=== PATIENT | male | born 1965 | race African-American/Black ===

== ENCOUNTER 2024-07-31 13:22 | Outpatient (CLI) | payer BC | END 2024-07-31 13:23 | disposition home or self-care (01) | LOC: CSHWCC 13:22 | PROVIDERS: ATTEND Nurse Practitioner Family | DX: E11.621 Type 2 diabetes mellitus with foot ulcer (principal); L97.115 Non-pressure chronic ulcer of right thigh with muscle involvement without evidence of necrosis | CPT/HCPCS: 11042; 11045; 99213; G0463 ==

== ENCOUNTER 2024-08-03 09:09 | Outpatient (CLI) | payer BC | END 2024-08-03 09:10 | disposition home or self-care (01) | LOC: CSHWCC 09:09 | PROVIDERS: ATTEND Nurse Practitioner Family | DX: E11.621 Type 2 diabetes mellitus with foot ulcer (principal); L97.115 Non-pressure chronic ulcer of right thigh with muscle involvement without evidence of necrosis | CPT/HCPCS: 29581 ==

== ENCOUNTER 2024-08-07 13:07 | Outpatient (CLI) | payer BC | END 2024-08-07 13:08 | disposition home or self-care (01) | LOC: CSHWCC 13:07 | PROVIDERS: ATTEND Nurse Practitioner Family | DX: E11.621 Type 2 diabetes mellitus with foot ulcer (principal); L97.115 Non-pressure chronic ulcer of right thigh with muscle involvement without evidence of necrosis | CPT/HCPCS: 11042; 11045 ==

== ENCOUNTER 2024-08-09 16:00 | Outpatient (CLI) | payer BC | END 2024-08-09 16:01 | disposition home or self-care (01) | LOC: CSHWCC 16:00 | PROVIDERS: ATTEND Nurse Practitioner Family | DX: E11.621 Type 2 diabetes mellitus with foot ulcer (principal); L97.115 Non-pressure chronic ulcer of right thigh with muscle involvement without evidence of necrosis | CPT/HCPCS: 29581; 99211; G0463 ==

== ENCOUNTER 2024-08-14 13:35 | Outpatient (CLI) | payer BC | END 2024-08-14 13:36 | disposition home or self-care (01) | LOC: CSHWCC 13:35 | PROVIDERS: ATTEND Nurse Practitioner Family | DX: E11.621 Type 2 diabetes mellitus with foot ulcer (principal); L97.115 Non-pressure chronic ulcer of right thigh with muscle involvement without evidence of necrosis | CPT/HCPCS: 11042; 11045 ==

== ENCOUNTER 2024-08-28 16:25 | Outpatient (CLI) | payer BC | END 2024-08-28 16:26 | disposition home or self-care (01) | LOC: CSHWCC 16:25 | PROVIDERS: ATTEND Nurse Practitioner Family | DX: E11.621 Type 2 diabetes mellitus with foot ulcer (principal); L97.115 Non-pressure chronic ulcer of right thigh with muscle involvement without evidence of necrosis | CPT/HCPCS: 11042 ==

== ENCOUNTER 2024-09-04 16:14 | Outpatient (CLI) | payer BC | END 2024-09-04 16:15 | disposition home or self-care (01) | LOC: CSHWCC 16:14 | PROVIDERS: ATTEND Nurse Practitioner Family | DX: E11.621 Type 2 diabetes mellitus with foot ulcer (principal); L97.115 Non-pressure chronic ulcer of right thigh with muscle involvement without evidence of necrosis | CPT/HCPCS: 11042 ==

== ENCOUNTER 2024-09-11 15:35 | Outpatient (CLI) | payer BC | END 2024-09-11 15:36 | disposition home or self-care (01) | LOC: CSHWCC 15:35 | PROVIDERS: ATTEND Nurse Practitioner Family | DX: E11.621 Type 2 diabetes mellitus with foot ulcer (principal); E11.622 Type 2 diabetes mellitus with other skin ulcer; L97.115 Non-pressure chronic ulcer of right thigh with muscle involvement without evidence of necrosis; L97.509 Non-pressure chronic ulcer of other part of unspecified foot with unspecified severity | CPT/HCPCS: 11042 ==

== ENCOUNTER 2024-09-18 15:52 | Outpatient (CLI) | payer BC | END 2024-09-18 15:53 | disposition home or self-care (01) | LOC: CSHWCC 15:52 | PROVIDERS: ATTEND Nurse Practitioner Family | DX: E11.621 Type 2 diabetes mellitus with foot ulcer (principal); L97.115 Non-pressure chronic ulcer of right thigh with muscle involvement without evidence of necrosis | CPT/HCPCS: 11042 ==

== ENCOUNTER 2024-09-25 15:16 | Outpatient (CLI) | payer BC | END 2024-09-25 15:17 | disposition home or self-care (01) | LOC: CSHWCC 15:16 | PROVIDERS: ATTEND Nurse Practitioner Family | DX: E11.621 Type 2 diabetes mellitus with foot ulcer (principal); L97.115 Non-pressure chronic ulcer of right thigh with muscle involvement without evidence of necrosis | CPT/HCPCS: 11042 ==

== ENCOUNTER 2024-10-10 16:11 | Outpatient (CLI) | payer BC | END 2024-10-10 16:12 | disposition home or self-care (01) | LOC: CSHWCC 16:11 | PROVIDERS: ATTEND Nurse Practitioner Family | DX: E11.621 Type 2 diabetes mellitus with foot ulcer (principal); L97.115 Non-pressure chronic ulcer of right thigh with muscle involvement without evidence of necrosis | CPT/HCPCS: 97597; 99212; 99213; G0463 ==

== ENCOUNTER 2024-10-30 12:45 | Outpatient (CLI) | payer BC | END 2024-10-30 12:46 | disposition home or self-care (01) | LOC: CSHWCC 12:45 | PROVIDERS: ATTEND Nurse Practitioner Family | DX: E11.621 Type 2 diabetes mellitus with foot ulcer (principal); L97.115 Non-pressure chronic ulcer of right thigh with muscle involvement without evidence of necrosis | CPT/HCPCS: 11042; 99212; G0463 ==

== ENCOUNTER 2024-11-06 14:09 | Outpatient (CLI) | payer BC | END 2024-11-06 14:10 | disposition home or self-care (01) | LOC: CSHWCC 14:09 | PROVIDERS: ATTEND Nurse Practitioner Family | DX: E11.621 Type 2 diabetes mellitus with foot ulcer (principal); L97.509 Non-pressure chronic ulcer of other part of unspecified foot with unspecified severity; E11.622 Type 2 diabetes mellitus with other skin ulcer; L97.115 Non-pressure chronic ulcer of right thigh with muscle involvement without evidence of necrosis | CPT/HCPCS: 99212; G0463 ==

== ENCOUNTER 2024-11-20 15:55 | Outpatient (CLI) | payer BC | END 2024-11-20 15:56 | disposition home or self-care (01) | LOC: CSHWCC 15:55 | PROVIDERS: ATTEND Nurse Practitioner Family | DX: Z09 Encounter for follow-up examination after completed treatment for conditions other than malignant neoplasm (principal); Z86.31 Personal history of diabetic foot ulcer | CPT/HCPCS: 99212; G0463 ==

== ENCOUNTER 2025-04-26 14:27 | Outpatient (CLI) | payer BC | END 2025-04-26 14:28 | disposition home or self-care (01) | LOC: CSHWCC 14:27 | PROVIDERS: ATTEND Nurse Practitioner Family | DX: E11.621 Type 2 diabetes mellitus with foot ulcer (principal); L97.115 Non-pressure chronic ulcer of right thigh with muscle involvement without evidence of necrosis; E11.65 Type 2 diabetes mellitus with hyperglycemia | CPT/HCPCS: 11042 ==